=== PATIENT | male | born 1955 | race Caucasian/White ===

== ENCOUNTER → 2024-05-04 08:33 | Outpatient (REF) | payer SELFPAY | LOC: HWRAD 08:33 | PROVIDERS: ATTENDING PHYSICIAN Hospitalist | DX: E78.5 Hyperlipidemia, unspecified (principal) | CPT/HCPCS: 75571 ==

== ENCOUNTER → 2024-06-10 12:09 | Outpatient (REF) | payer OTHER, SELFPAY | LOC: PAVMRI 12:09 | PROVIDERS: ATTENDING PHYSICIAN Hospitalist | DX: R79.89 Other specified abnormal findings of blood chemistry (principal); D35.2 Benign neoplasm of pituitary gland | CPT/HCPCS: 70553; A9575 ==